=== PATIENT | male | born 1940 | race Caucasian/White ===

== ENCOUNTER 2024-09-10 11:43 | Inpatient (IN) | payer MEDICARE, BC ==
[~2024-09-10] VITALS: Ht 165.1 cm; Wt 76.2 kg
[2024-09-10] VITALS (11 sets, daily range): BP systolic 152–168; BP diastolic 64–72; PULSE 58–78; RESP 18–20; TEMP 97.9–99.5; O2SAT 97–100
[2024-09-10 12:40] LABS: BASOPHILS % 0.5 % (0.0-1.0); EOSINOPHILS # (AUTO) 0.1 (0.0-0.4); EOSINOPHILS % 1.1 % (0.0-6.0); HEMATOCRIT 33.8 % (38.2-49.6); HEMOGLOBIN 10.8 g/dL (14.0-18.0); LYMPHOCYTES # (AUTO) 1.3 (1.0-3.2); LYMPHOCYTES % 19.8 % (18.0-39.1); MEAN CORPUSCULAR HEMOGLOBIN 29.4 pg (28-32); MEAN CORPUSCULAR VOLUME 92.1 fL (81-99); MONOCYTES # (AUTO) 0.6 (0.2-0.8); MONOCYTES % 8.6 % (4.4-11.3); NEUTROPHILS # (AUTO) 4.7 (2.1-6.9); NEUTROPHILS % 69.8 % (38.7-80.0); PLATELET COUNT 250 x10e3/uL (140-360); RED BLOOD COUNT 3.67 x10e6/uL (4.3-5.7); RED CELL DISTRIBUTION WIDTH 13.8 % (11.7-14.4); WHITE BLOOD COUNT 6.65 x10e3/uL (4.8-10.8)
[2024-09-10 12:55] LABS: INR 1.03; PROTHROMBIN TIME 14.1 seconds (11.9-14.5)
[2024-09-10 13:04] LABS: ALBUMIN 3.6 g/dL (3.5-5.0); ALBUMIN/GLOBULIN RATIO 1.3 (0.8-2.0); ANION GAP 12.5 mmol/L (8-16); BILIRUBIN,TOTAL 0.4 mg/dL (0.2-1.2); CALCIUM 9.1 mg/dL (8.4-10.2); CREATININE, SERUM 1.12 mg/dL (0.72-1.25); POTASSIUM 3.5 mmol/L (3.5-5.1); TOTAL PROTEIN 6.4 g/dL (6.5-8.1)
[2024-09-10] MEDS ORDERED: Morphine 4mg INJECTION 4 MG/ML INJ IV PRN (15:00)
[2024-09-10] MEDS ORDERED: ONDANSETRON HCL INJ 2MG/ML 2ML 2 MG/ML VIAL IV PRN (15:00)
[2024-09-10] MEDS ORDERED: SODIUM CHLORIDE 0.9% 100 ML ONE (17:34)
[2024-09-10] MEDS ORDERED: CLOPIDOGREL75 MG PO (23:07)
[2024-09-10] MEDS ORDERED: LEVOTHYROXINE75 MCG PO (23:07)
[2024-09-10] MEDS ORDERED: PRAVASTATIN SOD20 MG PO (23:07)
[2024-09-10] MEDS ORDERED: LOSARTAN-HCTZ1 EAC1 PO (23:07)
[2024-09-10] MEDS ORDERED: DILTIAZEM 24HR300 MG PO (23:07)
[2024-09-10] MEDS ORDERED: PANTOPRAZOLE SO40 MG PO (23:07)
[2024-09-11 01:28] LABS: FERRITIN 33.77 ng/mL (21.81-274.66)
[2024-09-11 01:40] LABS: FOLATE 18.3 ng/mL (7.0-15.4)
[2024-09-11 03:05] VITALS: BP 136/55; PULSE 81; RESP 18; TEMP 97.9; O2SAT 97
[2024-09-11 05:34] LABS: BASOPHILS % 0.3 % (0.0-1.0); EOSINOPHILS # (AUTO) 0.1 (0.0-0.4); EOSINOPHILS % 1.9 % (0.0-6.0); HEMATOCRIT 27.2 % (38.2-49.6); HEMOGLOBIN 9.1 g/dL (14.0-18.0); LYMPHOCYTES # (AUTO) 1.2 (1.0-3.2); LYMPHOCYTES % 20.1 % (18.0-39.1); MEAN CORPUSCULAR HEMOGLOBIN 29.4 pg (28-32); MEAN CORPUSCULAR HGB CONC 33.5 g/dL (31-35); MEAN CORPUSCULAR VOLUME 87.7 fL (81-99); MONOCYTES # (AUTO) 0.6 (0.2-0.8); MONOCYTES % 10.4 % (4.4-11.3); NEUTROPHILS # (AUTO) 4.1 (2.1-6.9); PLATELET COUNT 231 x10e3/uL (140-360); WHITE BLOOD COUNT 6.17 x10e3/uL (4.8-10.8)
[2024-09-11 05:53] LABS: ANION GAP 12.8 mmol/L (8-16); CALCIUM 8.7 mg/dL (8.4-10.2); CREATININE, SERUM 0.89 mg/dL (0.72-1.25); POTASSIUM 3.8 mmol/L (3.5-5.1)
[2024-09-11 07:17] VITALS: PULSE 84; RESP 18; O2SAT 92
[2024-09-11 08:00] VITALS: BP 141/65; PULSE 74; RESP 19; TEMP 98.4; O2SAT 99
[2024-09-11] MEDS: SODIUM CHLORIDE 0.9% 500ML 1,000 ML ONE (08:10)
[2024-09-11] MEDS: FENTANYL CITRATE/PF 100MCG/2 ML INJ ONE (08:10)
[2024-09-11] MEDS: LIDOCAINE HCL 2% LOCAL 20 ML VIAL ONE (08:10)
[2024-09-11] MEDS: MIDAZOLAM HCL 2 MG/2 ML VIAL ONE (08:10)
[2024-09-11] MEDS: IOPAMIDOL 370 MG/ML 100 ML INFUS..BTL INJ ONE (08:10)
[2024-09-11] MEDS: HYDRALAZINE HCL 20 MG/ML VIAL ONE (08:11)
[2024-09-11] MEDS ORDERED: ACETAMINOPHEN 325 MG TAB PO PRN (09:15)
[2024-09-11] MEDS ORDERED: HYDRALAZINE HCL 20 MG/ML VIAL IV PRN (09:15)
[2024-09-11] MEDS: DILTIAZEM HCL 180 MG CAP ER PO SCH (10:00)
[2024-09-11] MEDS: SODIUM CHLORIDE 0.9% 250ML 250 ML ONE (11:51)
[2024-09-11] MEDS ORDERED: [UNRECOGNIZED DRUG - OTHER] PO (12:01)
[2024-09-11] MEDS ORDERED: VIBRAMYCIN PO (12:01)
[2024-09-11] MEDS ORDERED: HYOSCYAMINE0.125 MG PO (12:01)
[2024-09-11] MEDS ORDERED: HYOSCYAMINE0.375 MG PO (12:01)
[2024-09-11] MEDS ORDERED: ONE A DAY PO (12:01)
[2024-09-11] MEDS: DILTIAZEM HCL ER 120 MG CAP PO SCH (12:05)
[2024-09-11] MEDS: LEVOTHYROXINE SODIUM 75 MCG TAB PO SCH (12:05)
[2024-09-11] MEDS: METRONIDAZOLE 500MG/NS 100ML 100 ML IV SCH ×2 (12:06→22:24)
[2024-09-11 12:07] VITALS: BP 149/64; PULSE 68; RESP 19; TEMP 98.3; O2SAT 100
[2024-09-11] MEDS: IRON SUCROSE 100 MG in SODIUM CHLORIDE 0.9% 100 ML IV SCH (14:24)
[2024-09-11 16:00] VITALS: BP 149/62; PULSE 63; RESP 17; TEMP 98.9; O2SAT 100
[2024-09-11 22:00] VITALS: BP 156/52; PULSE 61; RESP 18; TEMP 98.5; O2SAT 98
[2024-09-11] MEDS: DILTIAZEM HCL CR 120MG TAB PO SCH (22:09)
[2024-09-11] MEDS: PRAVASTATIN 20 MG TAB PO SCH (22:09)
[2024-09-12 02:21] VITALS: BP 139/56; PULSE 81; RESP 16; TEMP 98.2; O2SAT 97
[2024-09-12 08:13] VITALS: BP 127/57; PULSE 61; RESP 20; TEMP 97.4; O2SAT 99
[2024-09-12] MEDS: SODIUM CHLORIDE 0.9% 250ML 250 ML ONE (08:44)
[2024-09-12 10:36] VITALS: BP 127/57; PULSE 61; RESP 20; TEMP 97.4; O2SAT 99
[2024-09-12 11:45] VITALS: BP 121/67; PULSE 54; RESP 19; TEMP 98.6; O2SAT 99
[2024-09-12 16:23] VITALS: BP 129/46; PULSE 58; RESP 17; TEMP 97.8; O2SAT 100
[2024-09-12 20:00] VITALS: BP 147/50; PULSE 61; RESP 18; TEMP 98.8; O2SAT 97
[2024-09-13 04:00] VITALS: BP 138/57; PULSE 67; RESP 17; TEMP 97.7; O2SAT 100
[2024-09-13 05:41] LABS: BASOPHILS % 0.5 % (0.0-1.0); EOSINOPHILS # (AUTO) 0.2 (0.0-0.4); EOSINOPHILS % 2.6 % (0.0-6.0); HEMATOCRIT 22.8 % (38.2-49.6); HEMOGLOBIN 7.5 g/dL (14.0-18.0); LYMPHOCYTES # (AUTO) 1.5 (1.0-3.2); LYMPHOCYTES % 24.6 % (18.0-39.1); MEAN CORPUSCULAR HEMOGLOBIN 29.6 pg (28-32); MEAN CORPUSCULAR HGB CONC 32.9 g/dL (31-35); MEAN CORPUSCULAR VOLUME 90.1 fL (81-99); MONOCYTES # (AUTO) 0.6 (0.2-0.8); MONOCYTES % 10.5 % (4.4-11.3); NEUTROPHILS # (AUTO) 3.7 (2.1-6.9); NEUTROPHILS % 61.5 % (38.7-80.0); PLATELET COUNT 209 x10e3/uL (140-360); RED BLOOD COUNT 2.53 x10e6/uL (4.3-5.7); RED CELL DISTRIBUTION WIDTH 14.1 % (11.7-14.4); WHITE BLOOD COUNT 6.09 x10e3/uL (4.8-10.8)
[2024-09-13 06:08] LABS: CALCIUM 8.5 mg/dL (8.4-10.2); CREATININE, SERUM 0.95 mg/dL (0.72-1.25)
[2024-09-13 08:24] VITALS: BP 135/52; PULSE 78; RESP 19; TEMP 97.4; O2SAT 98
[2024-09-13 10:01] VITALS: BP 135/52; PULSE 78; RESP 19; TEMP 97.4; O2SAT 98
[2024-09-13 12:06] VITALS: BP 148/59; PULSE 59; RESP 17; TEMP 97.7; O2SAT 100
[2024-09-13 16:11] VITALS: BP 152/61; PULSE 60; RESP 18; TEMP 96.7; O2SAT 100
[2024-09-13] MEDS: SODIUM CHLORIDE 0.9% 250ML 250 ML IV ONE (17:45)
[2024-09-13] MEDS: DIPHENHYDRAMINE HCL 25 MG CAP PO ONE (17:45)
[2024-09-13] MEDS: ACETAMINOPHEN 325 MG TAB PO ONE (17:45)
[2024-09-13] MEDS ORDERED: DIPHENHYDRAMINE HCL INJ 50 MG/ML VIAL IV ONE (18:00)
[2024-09-13 22:43] VITALS: BP 144/56; PULSE 56; RESP 18; TEMP 98.6; O2SAT 99
[2024-09-13] MEDS: FUROSEMIDE INJ 10 MG/ML 2 ML VIAL IV PRN (23:09)
[2024-09-14 05:54] VITALS: BP 155/53; PULSE 55; RESP 18; O2SAT 99
[2024-09-14 07:41] VITALS: BP 156/67; PULSE 54; RESP 17; TEMP 98.5; O2SAT 100
[2024-09-14 07:48] VITALS: BP 156/67; PULSE 54; RESP 17; TEMP 98.5; O2SAT 100
[2024-09-14 08:18] LABS: BASOPHILS % 0.6 % (0.0-1.0); EOSINOPHILS # (AUTO) 0.2 (0.0-0.4); EOSINOPHILS % 3.3 % (0.0-6.0); HEMATOCRIT 33.6 % (38.2-49.6); HEMOGLOBIN 10.9 g/dL (14.0-18.0); LYMPHOCYTES # (AUTO) 1.4 (1.0-3.2); LYMPHOCYTES % 21.4 % (18.0-39.1); MEAN CORPUSCULAR HGB CONC 32.4 g/dL (31-35); MEAN CORPUSCULAR VOLUME 92.6 fL (81-99); MONOCYTES # (AUTO) 0.6 (0.2-0.8); MONOCYTES % 8.8 % (4.4-11.3); NEUTROPHILS # (AUTO) 4.2 (2.1-6.9); NEUTROPHILS % 65.6 % (38.7-80.0); PLATELET COUNT 232 x10e3/uL (140-360); RED BLOOD COUNT 3.63 x10e6/uL (4.3-5.7); RED CELL DISTRIBUTION WIDTH 13.8 % (11.7-14.4); WHITE BLOOD COUNT 6.46 x10e3/uL (4.8-10.8)
[2024-09-14 08:20] VITALS: BP 156/67; PULSE 59
[2024-09-14] MEDS: SODIUM CHLORIDE 0.9% 250ML 250 ML ONE (08:20)
[2024-09-14 08:33] LABS: ANION GAP 13.5 mmol/L (8-16); CALCIUM 8.7 mg/dL (8.4-10.2); CREATININE, SERUM 0.96 mg/dL (0.72-1.25); POTASSIUM 3.5 mmol/L (3.5-5.1)
== END 2024-09-14 10:43 | disposition home or self-care (01) | DRG 270 ==
LOC: ER 11:49 → ERHOLD 14:55 → MED/SURG 17:31 → OBSVTOIN 09-11 09:02
PROVIDERS: ADMIT Internal Medicine; ATTEND Internal Medicine
PROC: 04LB3DZ Occlusion of Inferior Mesenteric Artery with Intraluminal Device, Percutaneous Approach (ICD-10-PCS; principal; 2024-09-11)
PROC: B4151ZZ Fluoroscopy of Inferior Mesenteric Artery using Low Osmolar Contrast (ICD-10-PCS; 2024-09-11)
PROC: 30233N1 Transfusion of Nonautologous Red Blood Cells into Peripheral Vein, Percutaneous Approach (ICD-10-PCS; 2024-09-13)
DX: R58 Hemorrhage, not elsewhere classified (principal); K57.31 Diverticulosis of large intestine without perforation or abscess with bleeding; D62 Acute posthemorrhagic anemia; D50.9 Iron deficiency anemia, unspecified; I10 Essential (primary) hypertension; I25.10 Atherosclerotic heart disease of native coronary artery without angina pectoris; E78.5 Hyperlipidemia, unspecified; Z79.82 Long term (current) use of aspirin; Z79.02 Long term (current) use of antithrombotics/antiplatelets; Z95.5 Presence of coronary angioplasty implant and graft
CPT/HCPCS: 36415; 37244; 74174; 74470; 75726; 75774; 80048; 80053; 82607; 82728; 82746; 83540; 84466; 85025; 85045; 85610; 86850; 86900; 86920; 94799; 99284; G0378; J0360; J0696; J1200; J1756; J1940; J2003; J2250; J7040; J7050; P9016; Q9967

== ENCOUNTER 2024-10-30 05:52 | Inpatient (IN) | payer MEDICARE, BC ==
[2024-10-30] VITALS (42 sets, daily range): BP systolic 138–179; BP diastolic 54–105; PULSE 42–166; RESP 13–25; TEMP 97.7–98.8; O2SAT 95–100
[~2024-10-30] VITALS: Ht 165.1 cm; Wt 74.2 kg
[~2024-10-30 05:52] MED LIST: CLOPIDOGREL75 MG PO; DILTIAZEM 24HR300 MG PO; HYOSCYAMINE0.125 MG PO; HYOSCYAMINE0.375 MG PO; LEVOTHYROXINE75 MCG PO; LOSARTAN-HCTZ1 EAC1 PO; ONE A DAY PO; PANTOPRAZOLE SO40 MG PO; PRAVASTATIN SOD20 MG PO; VIBRAMYCIN PO; [UNRECOGNIZED DRUG - OTHER] PO
[2024-10-30] MEDS ORDERED: SODIUM CHLORIDE 0.9% 1000ML 1,000 ML ONE (06:25)
[2024-10-30 06:29] LABS: BASOPHILS % 0.6 % (0.0-1.0); EOSINOPHILS # (AUTO) 0.6 (0.0-0.4); EOSINOPHILS % 9.8 % (0.0-6.0); HEMOGLOBIN 9.5 g/dL (14.0-18.0); LYMPHOCYTES # (AUTO) 1.6 (1.0-3.2); LYMPHOCYTES % 25.1 % (18.0-39.1); MEAN CORPUSCULAR HEMOGLOBIN 29.2 pg (28-32); MEAN CORPUSCULAR HGB CONC 32.8 g/dL (31-35); MEAN CORPUSCULAR VOLUME 89.2 fL (81-99); MONOCYTES # (AUTO) 0.5 (0.2-0.8); MONOCYTES % 8.3 % (4.4-11.3); NEUTROPHILS # (AUTO) 3.5 (2.1-6.9); NEUTROPHILS % 55.9 % (38.7-80.0); PLATELET COUNT 230 x10e3/uL (140-360); RED BLOOD COUNT 3.25 x10e6/uL (4.3-5.7); RED CELL DISTRIBUTION WIDTH 13.4 % (11.7-14.4)
[2024-10-30] MEDS: SODIUM CHLORIDE 0.9% 1000ML 1,000 ML IV STA (06:31)
[2024-10-30 06:38] LABS: PROTHROMBIN TIME 13.8 seconds (11.9-14.5)
[2024-10-30 06:39] LABS: PARTIAL THROMBOPLASTIN TIME 29.5 seconds (23.8-35.5)
[2024-10-30 06:43] LABS: ALBUMIN 3.4 g/dL (3.5-5.0); ALBUMIN/GLOBULIN RATIO 1.4 (0.8-2.0); ANION GAP 14.6 mmol/L (8-16); BILIRUBIN,TOTAL 0.2 mg/dL (0.2-1.2); CALCIUM 8.6 mg/dL (8.4-10.2); CREATININE, SERUM 1.15 mg/dL (0.72-1.25); MAGNESIUM 1.8 MG/DL (1.3-2.1); POTASSIUM 3.6 mmol/L (3.5-5.1); TOTAL PROTEIN 5.9 g/dL (6.5-8.1)
[2024-10-30 06:50] LABS: TROPONIN I 0.014 ng/mL (0-0.300)
[2024-10-30] MEDS ORDERED: SODIUM CHLORIDE 0.9% 1000ML 1,000 ML IV SCH (09:00)
[2024-10-30] MEDS ORDERED: IOPAMIDOL 370 MG/ML 100 ML INFUS..BTL INJ ONE (09:34)
[2024-10-30] MEDS ORDERED: SODIUM CHLORIDE 0.9% 100 ML ONE (09:34)
[2024-10-30] MEDS ORDERED: SODIUM CHLORIDE 0.9% 250ML 250 ML ONE (09:54)
[2024-10-30] MEDS: HYDROMORPHONE 1MG/1ML INJ IV PRN (13:23)
[2024-10-30] MEDS: LACTATED RINGER'S 1,000 ML INJ SCH (13:38)
[2024-10-30 14:33] LABS: HEMOGLOBIN 9.1 g/dL (14.0-18.0)
[2024-10-30] MEDS: ONDANSETRON HCL INJ 2MG/ML 2ML 2 MG/ML VIAL IV PRN (17:18)
[2024-10-30 18:26] LABS: HEMATOCRIT 25.9 % (38.2-49.6); HEMOGLOBIN 8.4 g/dL (14.0-18.0)
[2024-10-30] MEDS: LIDOCAINE HCL 2% LOCAL 20 ML VIAL ONE (20:13)
[2024-10-30] MEDS: SODIUM CHLORIDE 0.9% 1000ML 1,000 ML ONE (20:13)
[2024-10-30] MEDS: IOPAMIDOL 370 MG/ML 100 ML INFUS..BTL INJ ONE ×2 (20:14)
[2024-10-30] MEDS: SODIUM CHLORIDE 0.9% 500ML 500 ML ONE (20:14)
[2024-10-30] MEDS: FENTANYL CITRATE/PF 100MCG/2 ML INJ ONE (20:14)
[2024-10-30] MEDS: SODIUM CHLORIDE 0.9% 100 ML ONE (20:15)
[2024-10-30] MEDS: ATROPINE SULFATE 0.1 MG/ML 10ML SYR ONE (20:15)
[2024-10-30] MEDS: PHENYLEPHRINE HCL 1% 10 MG/ML VIAL ONE (20:15)
[2024-10-30] MEDS: MIDAZOLAM HCL 2 MG/2 ML VIAL ONE (20:15)
[2024-10-30] MEDS: PRAVASTATIN 20 MG TAB PO SCH (20:57)
[2024-10-31] VITALS (19 sets, daily range): BP systolic 133–167; BP diastolic 51–117; PULSE 57–105; RESP 11–30; TEMP 98–98.8; O2SAT 95–100
[2024-10-31 00:04] LABS: BASOPHILS % 0.1 % (0.0-1.0); EOSINOPHILS % 0.1 % (0.0-6.0); HEMATOCRIT 25.7 % (38.2-49.6); HEMOGLOBIN 8.4 g/dL (14.0-18.0); LYMPHOCYTES % 9.6 % (18.0-39.1); MEAN CORPUSCULAR HEMOGLOBIN 28.8 pg (28-32); MEAN CORPUSCULAR HGB CONC 32.7 g/dL (31-35); MONOCYTES # (AUTO) 0.5 (0.2-0.8); MONOCYTES % 5.4 % (4.4-11.3); NEUTROPHILS # (AUTO) 8.5 (2.1-6.9); NEUTROPHILS % 84.4 % (38.7-80.0); PLATELET COUNT 194 x10e3/uL (140-360); RED BLOOD COUNT 2.92 x10e6/uL (4.3-5.7); RED CELL DISTRIBUTION WIDTH 13.7 % (11.7-14.4)
[2024-10-31 00:12] LABS: WHITE BLOOD COUNT 10.08 x10e3/uL (4.8-10.8)
[2024-10-31] MEDS: LEVOTHYROXINE SODIUM 75 MCG TAB PO SCH (05:10)
[2024-10-31 07:17] LABS: BASOPHILS % 0.2 % (0.0-1.0); EOSINOPHILS % 0.1 % (0.0-6.0); HEMATOCRIT 26.2 % (38.2-49.6); HEMOGLOBIN 8.6 g/dL (14.0-18.0); LYMPHOCYTES # (AUTO) 1.1 (1.0-3.2); LYMPHOCYTES % 12.2 % (18.0-39.1); MEAN CORPUSCULAR HEMOGLOBIN 29.3 pg (28-32); MEAN CORPUSCULAR HGB CONC 32.8 g/dL (31-35); MEAN CORPUSCULAR VOLUME 89.1 fL (81-99); MONOCYTES # (AUTO) 0.5 (0.2-0.8); NEUTROPHILS % 81.2 % (38.7-80.0); PLATELET COUNT 198 x10e3/uL (140-360); RED BLOOD COUNT 2.94 x10e6/uL (4.3-5.7); RED CELL DISTRIBUTION WIDTH 13.6 % (11.7-14.4); WHITE BLOOD COUNT 8.64 x10e3/uL (4.8-10.8)
[2024-10-31 07:54] LABS: ALBUMIN 3.3 g/dL (3.5-5.0); ALBUMIN/GLOBULIN RATIO 1.6 (0.8-2.0); ANION GAP 13.4 mmol/L (8-16); BILIRUBIN,TOTAL 0.5 mg/dL (0.2-1.2); CALCIUM 8.6 mg/dL (8.4-10.2); CREATININE, SERUM 0.84 mg/dL (0.72-1.25); TOTAL PROTEIN 5.4 g/dL (6.5-8.1)
[2024-10-31 08:00] LABS: POTASSIUM 3.4 mmol/L (3.5-5.1)
[2024-10-31] MEDS ORDERED: HYDRALAZINE HCL 20 MG/ML VIAL IV PRN (09:15)
[2024-10-31] MEDS: METOPROLOL TARTRATE 25 MG TAB PO SCH (09:45)
[2024-10-31] MEDS: IRON SUCROSE 100 MG in SODIUM CHLORIDE 0.9% 100 ML IV SCH (10:16)
[2024-11-01] VITALS (7 sets, daily range): BP systolic 113–167; BP diastolic 49–70; PULSE 49–82; RESP 16–20; TEMP 98.2–99.7; O2SAT 94–99
[2024-11-01 05:09] LABS: BASOPHILS % 0.4 % (0.0-1.0); EOSINOPHILS # (AUTO) 0.1 (0.0-0.4); EOSINOPHILS % 0.8 % (0.0-6.0); HEMATOCRIT 23.7 % (38.2-49.6); HEMOGLOBIN 7.8 g/dL (14.0-18.0); LYMPHOCYTES # (AUTO) 1.2 (1.0-3.2); LYMPHOCYTES % 17.3 % (18.0-39.1); MEAN CORPUSCULAR HEMOGLOBIN 29.4 pg (28-32); MEAN CORPUSCULAR HGB CONC 32.9 g/dL (31-35); MEAN CORPUSCULAR VOLUME 89.4 fL (81-99); MONOCYTES # (AUTO) 0.5 (0.2-0.8); MONOCYTES % 6.5 % (4.4-11.3); NEUTROPHILS # (AUTO) 5.3 (2.1-6.9); NEUTROPHILS % 74.6 % (38.7-80.0); PLATELET COUNT 178 x10e3/uL (140-360); RED BLOOD COUNT 2.65 x10e6/uL (4.3-5.7); RED CELL DISTRIBUTION WIDTH 13.5 % (11.7-14.4); WHITE BLOOD COUNT 7.06 x10e3/uL (4.8-10.8)
[2024-11-01 05:43] LABS: ANION GAP 12.2 mmol/L (8-16); CREATININE, SERUM 0.85 mg/dL (0.72-1.25)
[2024-11-01 05:47] LABS: POTASSIUM 3.2 mmol/L (3.5-5.1)
[2024-11-02 00:14] VITALS: BP 150/49; PULSE 53; RESP 18; TEMP 98.4; O2SAT 97
[2024-11-02 04:53] LABS: BASOPHILS % 0.4 % (0.0-1.0); EOSINOPHILS # (AUTO) 0.1 (0.0-0.4); EOSINOPHILS % 2.3 % (0.0-6.0); HEMOGLOBIN 7.4 g/dL (14.0-18.0); LYMPHOCYTES # (AUTO) 1.1 (1.0-3.2); LYMPHOCYTES % 20.2 % (18.0-39.1); MEAN CORPUSCULAR HEMOGLOBIN 28.7 pg (28-32); MEAN CORPUSCULAR HGB CONC 32.2 g/dL (31-35); MEAN CORPUSCULAR VOLUME 89.1 fL (81-99); MONOCYTES # (AUTO) 0.6 (0.2-0.8); MONOCYTES % 10.5 % (4.4-11.3); NEUTROPHILS # (AUTO) 3.5 (2.1-6.9); NEUTROPHILS % 66.2 % (38.7-80.0); PLATELET COUNT 163 x10e3/uL (140-360); RED BLOOD COUNT 2.58 x10e6/uL (4.3-5.7); RED CELL DISTRIBUTION WIDTH 13.5 % (11.7-14.4); WHITE BLOOD COUNT 5.26 x10e3/uL (4.8-10.8)
[2024-11-02 05:09] VITALS: BP 157/49; PULSE 51; RESP 17; TEMP 98.6; O2SAT 98
[2024-11-02 08:41] VITALS: BP 157/51; PULSE 65; RESP 20; TEMP 98; O2SAT 99
[2024-11-02 09:00] VITALS: BP 157/51; PULSE 65; RESP 20; TEMP 98; O2SAT 99
[2024-11-02 09:36] VITALS: BP 157/51; PULSE 65
== END 2024-11-02 12:00 | disposition home or self-care (01) | DRG 270 ==
LOC: ER 05:59 → ERHOLD 08:59 → ICU 12:50 → MED/SURG 10-31 11:05
PROVIDERS: ADMIT Internal Medicine; ATTEND Internal Medicine
PROC: 04LB3DZ Occlusion of Inferior Mesenteric Artery with Intraluminal Device, Percutaneous Approach (ICD-10-PCS; principal; 2024-10-30)
PROC: 30233N1 Transfusion of Nonautologous Red Blood Cells into Peripheral Vein, Percutaneous Approach (ICD-10-PCS; 2024-10-30)
PROC: B4151ZZ Fluoroscopy of Inferior Mesenteric Artery using Low Osmolar Contrast (ICD-10-PCS; 2024-10-30)
DX: R58 Hemorrhage, not elsewhere classified (principal); K57.31 Diverticulosis of large intestine without perforation or abscess with bleeding; D62 Acute posthemorrhagic anemia; I10 Essential (primary) hypertension; I25.10 Atherosclerotic heart disease of native coronary artery without angina pectoris; Z79.890 Hormone replacement therapy; Z95.5 Presence of coronary angioplasty implant and graft
CPT/HCPCS: 36415; 37244; 71045; 74174; 74470; 75625; 75726; 75736; 75774; 76937; 80048; 80053; 83735; 84484; 85014; 85018; 85025; 85610; 85730; 86850; 86900; 86920; 93005; 94799; 99152; 99153; 99284; J1171; J1756; J2003; J2250; J2371; J2405; J2470; J7030; J7040; J7050; P9016; Q9967